=== PATIENT | male | born 1995 | race Caucasian/White ===

== ENCOUNTER 2025-03-12 13:09 | Inpatient (IN) | payer MEDICAID ==
[~2025-03-12] VITALS: Ht 175.3 cm; Wt 81.6 kg
[2025-03-12 13:11] VITALS: O2SAT 95
[2025-03-12] MEDS: PIPERACILLIN/TAZO 3.375G/50ML 50 ML IV ONE (13:46)
[2025-03-12] MEDS: MORPHINE SULFATE 4 MG/ML INJ (FOR IV/IM USE) IV ONE (13:46)
[2025-03-12] MEDS: SODIUM CHLORIDE 0.9% (SEPSIS BOLUS) IV ONE (13:46)
[2025-03-12 14:07] LABS: CREATININE 0.4 mg/dL (0.6-1.3); UREA NITROGEN BLOOD 10 mg/dL (9-23)
[2025-03-12 14:09] LABS: ASPARTATE AMINOTRANSFERASE 26 IU/L (<34); BILIRUBIN DIRECT 0.2 mg/dL (<=3.0); BILIRUBIN TOTAL 0.6 mg/dL (0.1-1.0); PROTEIN TOTAL 7.1 g/dL (6.0-8.3)
[2025-03-12 14:10] LABS: COLOR URINE YELLOW (YELLOW); GLUCOSE URINE NEGATIVE (NEGATIVE); KETONES URINE 2+ (NEGATIVE); LEUKOCYTE ESTERASE URINE 2+ (NEGATIVE); NITRITE URINE NEGATIVE (NEGATIVE); OCCULT BLOOD URINE 1+ (NEGATIVE); PH URINE 6.5 (4.5-8.0); PROTEIN URINE 1+ (NEGATIVE); SPECIFIC GRAVITY URINE 1.022 (1.005-1.030); UROBILINOGEN URINE 1.0 E.U./dL (0.2-1.0)
[2025-03-12 14:21] LABS: INR 1.0
[2025-03-12] MEDS: VANCOMYCIN 1G PREMIX 200 ML IV ONE (14:21)
[2025-03-12 15:29] LABS: BASOPHILS % 0.1 % (0.0-2.0); EOSINOPHILS % 0.3 % (0.0-5.0); HEMATOCRIT. 34.6 % (42.0-52.0); HEMOGLOBIN. 12.0 g/dL (14.0-18.0); LYMPHOCYTES % 8.7 % (20.0-50.0); MEAN PLATELET VOLUME 9.3 fl (7.4-10.4); MONOCYTES % 7.0 % (2.0-8.0); NEUTROPHILS % 83.9 % (40.0-76.0); PLATELET 119 x1000/uL (130-400); RED BLOOD CELL COUNT 3.89 mill/uL (4.7-6.1); RED CELL DISTRIBUTION WIDTH 13.9 % (11.6-14.6)
[2025-03-12] MEDS ORDERED: ONDANSETRON HCL 4MG/2ML INJ IV PRN (15:30)
[2025-03-12] MEDS ORDERED: MAGNESIUM/ALUMINUM HYDROXIDE/SIMETHICONE 30ML UDC PO PRN (15:30)
[2025-03-12] MEDS ORDERED: ACETAMINOPHEN 325MG TABLET PO PRN (15:30)
[2025-03-12] MEDS ORDERED: CLONIDINE 0.1MG TABLET PO PRN (15:30)
[2025-03-12] MEDS: SODIUM CHLORIDE 0.9% 1,000 ML IV SCH (15:42)
[2025-03-12] MEDS ORDERED: NALOXONE HCL 0.4MG/ML VIAL IV PRN (15:45)
[2025-03-12] MEDS: ENOXAPARIN 40MG/0.4ML SYR SUBCUT SCH (15:53)
[2025-03-12] MEDS: VANCOMYCIN 500MG/100ML IV SCH (16:10)
[2025-03-12 16:31] LABS: CLARITY URINE HAZY (CLEAR)
[2025-03-12 16:32] LABS: RBC URINE 0-2 /hpf (0-2)
[2025-03-12 16:33] LABS: BACTERIA URINE 2+; MUCUS URINE TRACE /lpf (NONE/TRACE); SQUAMOUS EPITHELIAL CELL URINE RARE /lpf (RARE/1+)
[2025-03-12] MEDS: MORPHINE SULFATE 2 MG/ML INJ (NOT FOR IM USE) IV PRN (18:56)
[2025-03-12] MEDS: VANCOMYCIN 1GM PMX (XELLIA) 200 ML IV SCH (21:30)
[2025-03-12] MEDS ORDERED: VANCOMYCIN 1GM PMX (XELLIA) 200 ML IV SCH (22:00)
[2025-03-12] MEDS: PIPERACILLIN/TAZO 3.375G/50ML 50 ML IV SCH (22:28)
[2025-03-12] MEDS: ZOLPIDEM TARTRATE 5MG TABLET PO PRN (22:28)
[2025-03-12 22:38] LABS: CREATININE 0.4 mg/dL (0.6-1.3); UREA NITROGEN BLOOD 8 mg/dL (9-23)
[2025-03-12 22:40] LABS: BASOPHILS % 0.2 % (0.0-2.0); EOSINOPHILS % 0.2 % (0.0-5.0); HEMATOCRIT. 38.2 % (42.0-52.0); HEMOGLOBIN. 13.0 g/dL (14.0-18.0); LYMPHOCYTES % 9.9 % (20.0-50.0); MEAN PLATELET VOLUME 9.8 fl (7.4-10.4); MONOCYTES % 7.2 % (2.0-8.0); NEUTROPHILS % 82.5 % (40.0-76.0); PLATELET 134 x1000/uL (130-400); RED BLOOD CELL COUNT 4.27 mill/uL (4.7-6.1); RED CELL DISTRIBUTION WIDTH 14.1 % (11.6-14.6)
[2025-03-13] VITALS: BP 136/64; PULSE 114; RESP 18; TEMP 36.1; O2SAT 91
[2025-03-13] MEDS: QUETIAPINE FUMARATE 50MG TABLET PO NR (01:12)
[2025-03-13] MEDS: CLONAZEPAM 1MG TABLET PO PRN (01:12)
[2025-03-13 07:07] LABS: BASOPHILS % 0.3 % (0.0-2.0); EOSINOPHILS % 0.1 % (0.0-5.0); HEMATOCRIT. 34.7 % (42.0-52.0); HEMOGLOBIN. 12.1 g/dL (14.0-18.0); LYMPHOCYTES % 18.5 % (20.0-50.0); MONOCYTES % 5.8 % (2.0-8.0); NEUTROPHILS % 75.3 % (40.0-76.0); RED BLOOD CELL COUNT 3.90 mill/uL (4.7-6.1); RED CELL DISTRIBUTION WIDTH 14.1 % (11.6-14.6)
[2025-03-13 07:25] LABS: CREATININE 0.4 mg/dL (0.6-1.3); UREA NITROGEN BLOOD < 5 mg/dL (9-23)
[2025-03-13 08:00] VITALS: BP 122/70; PULSE 18; RESP 18; TEMP 36.6; O2SAT 95
[2025-03-13] MEDS: PANTOPRAZOLE SODIUM 40 MG/VIAL IV SCH (10:42)
[2025-03-13 10:55] LABS: PLATELET 144 x1000/uL (130-400)
[2025-03-13 12:00] VITALS: BP 123/73; PULSE 60; RESP 18; TEMP 36.6; O2SAT 99
[2025-03-13] MEDS: DOCUSATE SODIUM 100MG CAPSULE PO SCH (13:10)
[2025-03-13] MEDS: PIPERACILLIN/TAZO 3.375G/50ML 50 ML IV SCH (13:10)
[2025-03-13] MEDS: MAGNESIUM/ALUMINUM HYDROXIDE/SIMETHICONE 30ML UDC PO PRN (13:11)
[2025-03-13 13:22] LABS: *AMPHETAMINES SCREEN URINE PRESUMPTIVE POSITIVE (NEGATIVE); *BARBITURATES SCREEN URINE NEGATIVE (NEGATIVE); *BENZODIAZEPINES SCREEN URINE NEGATIVE (NEGATIVE); *COCAINE SCREEN URINE NEGATIVE (NEGATIVE); CANNABINOID URINE SCREEN PRESUMPTIVE POSITIVE (NEGATIVE); ECSTASY MDMA SCREEN URINE CONF.TEST INDICATED (NEGATIVE); METHADONE URINE SCREEN NEGATIVE (NEGATIVE); OPIATES URINE SCREEN NEGATIVE (NEGATIVE); PHENCYCLIDINE URINE SCREEN PRESUMTIVE POSITIVE (NEGATIVE)
[2025-03-13] MEDS: AZITHROMYCIN 500MG/250ML 250 ML IV SCH (14:00)
[2025-03-13] MEDS: LORAZEPAM 2MG/ML UD SYRINGE IV PRN (15:23)
[2025-03-13 15:37] VITALS: BP 138/86; PULSE 98; RESP 13; TEMP 37.3076
[2025-03-13 16:00] VITALS: BP 138/86; PULSE 98; RESP 14; TEMP 37.3; O2SAT 96
[2025-03-13] MEDS: GABAPENTIN 300MG CAPSULE PO SCH (17:23)
[2025-03-13 20:00] VITALS: BP 111/62; PULSE 101; RESP 18; TEMP 37.3; O2SAT 93
[2025-03-13] MEDS: QUETIAPINE FUMARATE 50MG TABLET PO SCH (21:56)
[2025-03-13] MEDS: CYCLOBENZAPRINE 10MG TABLET PO SCH (21:56)
[2025-03-13] MEDS: VANCOMYCIN 1.5GM PMX (XELLIA) 300 ML IV SCH (21:57)
[2025-03-14 07:17] LABS: CREATININE 0.3 mg/dL (0.6-1.3); UREA NITROGEN BLOOD < 5 mg/dL (9-23)
[2025-03-14 07:28] LABS: BASOPHILS % 0.4 % (0.0-2.0); EOSINOPHILS % 1.5 % (0.0-5.0); HEMATOCRIT. 35.1 % (42.0-52.0); HEMOGLOBIN. 12.0 g/dL (14.0-18.0); LYMPHOCYTES % 23.7 % (20.0-50.0); MEAN PLATELET VOLUME 9.7 fl (7.4-10.4); MONOCYTES % 8.0 % (2.0-8.0); NEUTROPHILS % 66.4 % (40.0-76.0); PLATELET 145 x1000/uL (130-400); RED BLOOD CELL COUNT 3.94 mill/uL (4.7-6.1); RED CELL DISTRIBUTION WIDTH 14.0 % (11.6-14.6)
[2025-03-14 12:00] VITALS: BP_SYST 107; BP_SYST 109; BP_DIAS 57; BP_DIAS 63; PULSE 89; RESP 18; RESP 20; TEMP 36.4; O2SAT 95
[2025-03-14] MEDS: BISACODYL 10MG SUPP PR SCH (15:08)
[2025-03-14 16:00] VITALS: BP 118/80; PULSE 107; RESP 20; TEMP 36.4; O2SAT 97
[2025-03-14 20:00] VITALS: BP 102/58; PULSE 91; RESP 18; TEMP 37.4; O2SAT 97
[2025-03-15] VITALS: BP 102/62; PULSE 121; RESP 18; TEMP 36.6; O2SAT 92
[2025-03-15 04:00] VITALS: BP 120/55; PULSE 94; RESP 17; TEMP 36.5; O2SAT 97
[2025-03-15 08:00] VITALS: BP 130/86; PULSE 80; RESP 18; TEMP 36.5; O2SAT 96
[2025-03-15] MEDS ORDERED: LEVO750T68 MT (10:31)
[2025-03-15] MEDS: KCL 20MEQ/100ML PREMIX 100 ML IV SCH (11:00)
[2025-03-15 11:42] LABS: BASOPHILS % 0.3 % (0.0-2.0); EOSINOPHILS % 1.4 % (0.0-5.0); HEMATOCRIT. 38.5 % (42.0-52.0); HEMOGLOBIN. 12.9 g/dL (14.0-18.0); LYMPHOCYTES % 17.8 % (20.0-50.0); MEAN PLATELET VOLUME 8.6 fl (7.4-10.4); MONOCYTES % 6.7 % (2.0-8.0); NEUTROPHILS % 73.8 % (40.0-76.0); PLATELET 166 x1000/uL (130-400); RED BLOOD CELL COUNT 4.29 mill/uL (4.7-6.1); RED CELL DISTRIBUTION WIDTH 14.1 % (11.6-14.6)
[2025-03-15 12:00] VITALS: BP 124/76; PULSE 62; RESP 18; TEMP 36.8; O2SAT 98
[2025-03-15 12:02] LABS: UREA NITROGEN BLOOD 6 mg/dL (9-23)
[2025-03-15 12:08] LABS: CREATININE 0.4 mg/dL (0.6-1.3)
[2025-03-15] MEDS: AZITHROMYCIN 500 MG TABLET PO SCH (14:47)
[2025-03-15] MEDS: HYDROCODONE/ACETAMINOPHEN 5/325MG TABLET PO PRN (15:02)
[2025-03-15 16:00] VITALS: BP 122/67; PULSE 79; RESP 18; TEMP 36.6; O2SAT 99
[2025-03-15 20:00] VITALS: BP 133/90; PULSE 76; RESP 16; TEMP 36.7; O2SAT 97
[2025-03-15] MEDS: VANCOMYCIN 1.5GM/250ML 250 ML IV SCH (21:07)
[2025-03-16 08:00] VITALS: RESP 18; TEMP 36.7
[2025-03-16 12:00] VITALS: BP 115/73; PULSE 93; RESP 20; TEMP 36.3; O2SAT 100
== END 2025-03-16 18:29 | disposition home or self-care (01) | DRG 720 ==
LOC: ER 13:09 → EDBEDREQTM 14:36 → EDBEDREQ 14:36 → 5WST 17:49
PROVIDERS: ADMIT Internal Medicine; ATTEND Internal Medicine
DX: A41.9 Sepsis, unspecified organism (principal); J96.20 Acute and chronic respiratory failure, unspecified whether with hypoxia or hypercapnia; G82.50 Quadriplegia, unspecified; J18.9 Pneumonia, unspecified organism; T83.518A Infection and inflammatory reaction due to other urinary catheter, initial encounter; N39.0 Urinary tract infection, site not specified; M54.9 Dorsalgia, unspecified; G89.29 Other chronic pain; L22 Diaper dermatitis; N31.9 Neuromuscular dysfunction of bladder, unspecified; Y84.6 Urinary catheterization as the cause of abnormal reaction of the patient, or of later complication, without mention of misadventure at the time of the procedure; Y92.89 Other specified places as the place of occurrence of the external cause; Z87.440 Personal history of urinary (tract) infections; Z88.6 Allergy status to analgesic agent
CPT/HCPCS: 36415; 71045; 74018; 80048; 80076; 80202; 80305; 81003; 83605; 84145; 84443; 85025; 87077; 87186; 87340; 93005; 93970; 96365; 96366; 96367; 96375; 99285; J0456; J1650; J2060; J2270; J2470; J2543; J3373; J7030